=== PATIENT | male | born 1955 | race Caucasian/White ===

== ENCOUNTER 2019-08-18 22:42 | Emergency (ER) | payer BC, OTHER ==
[~2019-08-18] VITALS: Ht 175.3 cm; Wt 88.0 kg
[~2019-08-18 22:42] MED LIST: AMLO5TAB4 PO; APIX5TAB PO; CYCL25CA PO; FLUD0.1T10 PO; GABA300C16 PO; HYDR25TA6 PO; LEVE10006 PO; MAGN400T28 PO; MYCO250C3 PO; SOTA80TA PO; TRAM50TA2 PO
[2019-08-18 22:45] VITALS: BP 122/71; PULSE 68; RESP 16; Ht 175.3 cm; Wt 88.0 kg
[2019-08-19] MEDS ORDERED: ONDANSETRON 4 MG INJ IV STA (00:43)
== END 2019-08-19 01:09 | disposition left against medical advice (07) ==
LOC: FTE 22:42
DX: Z53.21 Procedure and treatment not carried out due to patient leaving prior to being seen by health care provider (principal)